=== PATIENT | female | born 2000 | race Caucasian/White ===

== ENCOUNTER → 2022-05-13 | Outpatient (REF) | payer BC | LOC: M SFHCCAPE 15:05 | PROVIDERS: ATTEND Physician Assistant | DX: R05.1 Acute cough (principal) ==

== ENCOUNTER → 2022-05-13 | Outpatient (REF) | LOC: M EMP 13:41 | PROVIDERS: ATTEND Family Medicine | DX: Z53.9 Procedure and treatment not carried out, unspecified reason (principal) ==

== ENCOUNTER 2024-02-14 13:36 | Emergency (ER) | payer BC ==
[~2024-02-14] VITALS: Ht 172.7 cm; Wt 72.4 kg
[~2024-02-14 13:36] MED LIST: PRED20TA PO; REGL10TA6 PO
[2024-02-14] MEDS ORDERED: FLAG375C PO (13:44)
[2024-02-14] MEDS ORDERED: DEBL1TAB (13:45)
[2024-02-14 14:30] LABS: BASO # 0.1 10^3/uL (0.0-0.2); BASO % 0.5 % (0.0-1.0); EOS % 0.1 % (0.0-3.0); HEMATOCRIT 44.2 % (36.0-47.0); HEMOGLOBIN 15.2 g/dl (12.0-15.5); LYMPH # 1.5 10^3/uL (1.5-5.0); LYMPH % 10.4 % (24.0-44.0); MEAN CORPUSCULAR HEMOGLOBIN 30.4 pg (27.0-33.0); MEAN CORPUSCULAR HGB CONC 34.4 g/dl (32.0-36.5); MEAN CORPUSCULAR VOLUME 88.4 fl (80.0-96.0); MONO # 0.8 10^3/uL (0.0-0.8); MONO % 5.2 % (2.0-8.0); NEUTROPHILS # 12.4 10^3/uL (1.5-8.5); NEUTROPHILS % 83.5 % (36.0-66.0); PLATELET COUNT, AUTOMATED 244 10^3/uL (150-450); WHITE BLOOD COUNT 14.9 10^3/uL (4.0-10.0)
[2024-02-14 14:54] LABS: LIPASE 30 U/L (12-53)
[2024-02-14 14:56] LABS: ALBUMIN 4.6 G/DL (3.2-5.2); ALKALINE PHOSPHATASE 79 U/L (35-104); ALT/SGPT 14 U/L (7.0-40); AST/SGOT 13 U/L (<34); BILIRUBIN,DIRECT 0.4 MG/DL (<0.4); BILIRUBIN,TOTAL 0.8 MG/DL (0.3-1.2); BLOOD UREA NITROGEN 9 MG/DL (9-23); CALCIUM LEVEL 10.1 MG/DL (8.5-10.1); CARBON DIOXIDE LEVEL 23 MMOL/L (20-31); CHLORIDE LEVEL 104 MMOL/L (98-107); CREATININE FOR GFR 0.82 MG/DL (0.55-1.30); GLOMERULAR FILTRATION RATE > 60.0 (>60); GLUCOSE, FASTING 88 MG/DL (60-100); POTASSIUM SERUM 4.4 MMOL/L (3.5-5.1); SODIUM LEVEL 141 MMOL/L (136-145); TOTAL PROTEIN 7.4 G/DL (5.7-8.2)
[2024-02-14 15:00] LABS: HCG, SERUM QUALITATIVE NEGATIVE (NEGATIVE)
[2024-02-14 15:08] VITALS: BP 106/63; TEMP 98.1; O2SAT 97
[2024-02-14] MEDS: ONDANSETRON 4MG 2ML VIAL IV ONE (15:27)
[2024-02-14] MEDS ORDERED: ONDA-282 PO (15:43)
== END 2024-02-14 15:53 | disposition home or self-care (01) ==
LOC: M ED 13:36
DX: R11.2 Nausea with vomiting, unspecified (principal); R19.7 Diarrhea, unspecified; Z88.1 Allergy status to other antibiotic agents
CPT/HCPCS: 80048; 80076; 83690; 84703; 85025; 86140; 87507; 96374; 99284; J2405

== ENCOUNTER 2024-06-08 12:48 | Emergency (ER) | payer BC ==
[~2024-06-08] VITALS: Ht 172.7 cm; Wt 74.1 kg
[~2024-06-08 12:48] MED LIST changes: +DEBL1TAB; +FLAG375C PO; +ONDA-282 PO
[2024-06-08 13:39] LABS: BASO % 0.4 % (0.0-1.0); EOS % 0.2 % (0.0-3.0); HEMATOCRIT 38.9 % (36.0-47.0); HEMOGLOBIN 13.3 g/dl (12.0-15.5); LYMPH # 1.6 10^3/uL (1.5-5.0); LYMPH % 16.1 % (24.0-44.0); MEAN CORPUSCULAR HEMOGLOBIN 30.2 pg (27.0-33.0); MEAN CORPUSCULAR HGB CONC 34.2 g/dl (32.0-36.5); MEAN CORPUSCULAR VOLUME 88.4 fl (80.0-96.0); MONO # 0.6 10^3/uL (0.0-0.8); MONO % 5.8 % (2.0-8.0); NEUTROPHILS # 7.6 10^3/uL (1.5-8.5); NEUTROPHILS % 75.8 % (36.0-66.0); PLATELET COUNT, AUTOMATED 173 10^3/uL (150-450)
[2024-06-08 14:03] LABS: FREE T4 1.49 NG/DL (0.89-1.76)
[2024-06-08 14:04] LABS: THYROID STIMULATING HORMONE 0.921 uIU/ML (0.55-4.78)
[2024-06-08 14:09] LABS: ALBUMIN 3.7 G/DL (3.2-5.2); ALKALINE PHOSPHATASE 68 U/L (35-104); ALT/SGPT 11 U/L (7.0-40); AST/SGOT 22 U/L (<34); BILIRUBIN,DIRECT 0.2 MG/DL (<0.4); BILIRUBIN,TOTAL 0.6 MG/DL (0.3-1.2); BLOOD UREA NITROGEN < 5 MG/DL (9-23); CALCIUM LEVEL 8.5 MG/DL (8.5-10.1); CARBON DIOXIDE LEVEL 22 MMOL/L (20-31); CHLORIDE LEVEL 111 MMOL/L (98-107); CREATININE FOR GFR 0.73 MG/DL (0.55-1.30); GLOMERULAR FILTRATION RATE > 60.0 (>60); GLUCOSE, FASTING 92 MG/DL (60-100); LIPASE 32 U/L (12-53); MAGNESIUM LEVEL 1.7 MG/DL (1.8-2.4); POTASSIUM SERUM 5.1 MMOL/L (3.5-5.1); SODIUM LEVEL 140 MMOL/L (136-145); TOTAL PROTEIN 6.7 G/DL (5.7-8.2)
[2024-06-08 14:13] LABS: HCG, SERUM QUALITATIVE NEGATIVE (NEGATIVE)
[2024-06-08 14:15] VITALS: TEMP 98.7
[2024-06-08] MEDS ORDERED: NS 500 ML IV ONE (14:15)
[2024-06-08] MEDS ORDERED: ISOVUE-370 76% 100ML VIAL As Ordered ONE (14:43)
[2024-06-08] MEDS: MAG SULF 1GM/100ML (MAG RUN) 1 GM in IV 1 EA IV ONE (15:48)
[2024-06-08 17:00] VITALS: BP 116/67; O2SAT 97
[2024-06-08] MEDS ORDERED: MAGN400T33 PO (17:02)
== END 2024-06-08 17:23 | disposition home or self-care (01) ==
LOC: EDBD 12:48 → M ED 12:48
DX: R00.2 Palpitations (principal); E83.42 Hypomagnesemia; R06.00 Dyspnea, unspecified; F10.10 Alcohol abuse, uncomplicated; Z88.1 Allergy status to other antibiotic agents; Z79.899 Other long term (current) drug therapy
CPT/HCPCS: 71275; 80048; 80076; 83690; 83735; 84439; 84443; 84703; 85025; 87486; 87581; 87633; 87798; 93005; 93041; 94760; 96365; 99285; J3475; Q9967

== ENCOUNTER 2024-07-31 11:28 | Emergency (ER) | payer BC ==
[~2024-07-31] VITALS: Ht 172.7 cm; Wt 70.5 kg
[~2024-07-31 11:28] MED LIST changes: +MAGN400T33 PO
[2024-07-31 12:25] LABS: HEMATOCRIT 41.9 % (36.0-47.0); HEMOGLOBIN 14.3 g/dl (12.0-15.5); MEAN CORPUSCULAR HEMOGLOBIN 29.9 pg (27.0-33.0); MEAN CORPUSCULAR HGB CONC 34.1 g/dl (32.0-36.5); MEAN CORPUSCULAR VOLUME 87.7 fl (80.0-96.0); PLATELET COUNT, AUTOMATED 227 10^3/uL (150-450); RED BLOOD COUNT 4.78 10^6/uL (4.00-5.40)
[2024-07-31 12:40] LABS: CK-MB VALUE MASS < 1.0 NG/ML (<3.6); LIPASE 30 U/L (12-53)
[2024-07-31 12:42] LABS: CPK CREATINE PHOSPHOKINASE 46 U/L (34-145); MB/CK RELATIVE INDEX 2.17 (< OR =4)
[2024-07-31 12:43] LABS: ALBUMIN 4.3 G/DL (3.2-5.2); ALKALINE PHOSPHATASE 94 U/L (35-104); ALT/SGPT 15 U/L (7.0-40); AST/SGOT 12 U/L (<34); BILIRUBIN,DIRECT 0.3 MG/DL (<0.4); BILIRUBIN,TOTAL 0.8 MG/DL (0.3-1.2); BLOOD UREA NITROGEN 10 MG/DL (9-23); CALCIUM LEVEL 9.5 MG/DL (8.5-10.1); CARBON DIOXIDE LEVEL 26 MMOL/L (20-31); CHLORIDE LEVEL 101 MMOL/L (98-107); CREATININE FOR GFR 0.76 MG/DL (0.55-1.30); GLOMERULAR FILTRATION RATE > 90.0 (>60); GLUCOSE, FASTING 88 MG/DL (60-100); POTASSIUM SERUM 3.9 MMOL/L (3.5-5.1); SODIUM LEVEL 139 MMOL/L (136-145); TOTAL PROTEIN 7.7 G/DL (5.7-8.2)
[2024-07-31 12:44] LABS: FREE T4 1.32 NG/DL (0.89-1.76); THYROID STIMULATING HORMONE 1.267 uIU/ML (0.55-4.78)
[2024-07-31 12:46] LABS: HCG, SERUM QUALITATIVE NEGATIVE (NEGATIVE)
[2024-07-31 12:51] LABS: ATYPICAL LYMPH 5 % (0-5); BASOPHILS 3 % (0-1); LYMPHOCYTES 28 % (16-44); MONOCYTES 5 % (0-5); NEUTROPHILS 58 % (28-66); PLASMA CELL 1 % (0-0)
[2024-07-31 12:52] LABS: PLATELET ESTIMATE NORMAL (NORMAL)
[2024-07-31 13:40] LABS: D-DIMER QUANT < 0.27 ug/mL (<0.5); INR 0.99; PARTIAL THROMBOPLASTIN TIME 26.5 SECONDS (24.8-34.2); PROTHROMBIN TIME 13.4 SECONDS (12.5-14.5)
[2024-07-31 13:50] LABS: CK-MB VALUE MASS < 1.0 NG/ML (<3.6)
[2024-07-31 13:51] LABS: CPK CREATINE PHOSPHOKINASE 36 U/L (34-145); MB/CK RELATIVE INDEX 2.77 (< OR =4)
[2024-07-31 15:30] VITALS: TEMP 97.5
[2024-07-31] MEDS ORDERED: HOLTER MONITOR XX (15:53)
[2024-07-31 15:54] LABS: AMPHETAMINES LEVEL URINE NEGATIVE (NEGATIVE); BARBITURATES URINE NEGATIVE (NEGATIVE); BENZODIAZEPINES URINE NEGATIVE (NEGATIVE); CANNABINOIDS URINE NEGATIVE (NEGATIVE); COCAINE METABOLITE URINE NEGATIVE (NEGATIVE); METHADONE URINE NEGATIVE (NEGATIVE); OPIATES URINE NEGATIVE (NEGATIVE); PHENCYCLIDINE URINE NEGATIVE (NEGATIVE)
[2024-07-31 16:00] VITALS: BP 115/64; O2SAT 99
== END 2024-07-31 16:21 | disposition home or self-care (01) ==
LOC: M ED 11:28
DX: R00.2 Palpitations (principal); F12.10 Cannabis abuse, uncomplicated; Z88.1 Allergy status to other antibiotic agents; Z79.899 Other long term (current) drug therapy

== ENCOUNTER → 2024-09-19 | Outpatient (CLI) | payer BC ==
[~2024-09-19] MED LIST changes: +HOLTER MONITOR XX
== END ==
LOC: M EKG 08:13
DX: R00.2 Palpitations (principal); Z53.9 Procedure and treatment not carried out, unspecified reason

== ENCOUNTER → 2024-09-25 | Outpatient (REF) | LOC: M EMP 13:43 | PROVIDERS: ATTEND Family Medicine | DX: Z01.89 Encounter for other specified special examinations (principal) ==

== ENCOUNTER → 2024-12-29 | Outpatient (REF) | payer BC ==
[2024-12-29 13:22] LABS: APPEARANCE, URINE CLEAR (CLEAR); BACTERIA, URINE AUTO 3+ (NEGATIVE); BILIRUBIN, URINE AUTO NEGATIVE (NEGATIVE); BLOOD, URINE BLOOD NEGATIVE (NEGATIVE); GLUCOSE, URINE (UA) AUTO NEGATIVE (NEGATIVE); KETONE, URINE AUTO NEGATIVE (NEGATIVE); LEUKOCYTE ESTERASE, URINE AUTO TRACE (NEGATIVE); NITRITE, URINE AUTO NEGATIVE (NEGATIVE); PROTEIN, URINE AUTO NEGATIVE (NEGATIVE); RBC, URINE AUTO 0 /HPF (0-3); SPECIFIC GRAVITY URINE AUTO 1.003 (1.002-1.035); SQUAMOUS EPITHELIAL CELL UR AU 1 /HPF (0-6); UROBILINOGEN, URINE AUTO 0.2 mg/dL (0.0-2.0); WBC, URINE AUTO 0 /HPF (0-3)
== END ==
LOC: M LAB REF 12:07
PROVIDERS: ATTEND Physician Assistant
DX: N39.0 Urinary tract infection, site not specified (principal)